=== PATIENT | female | born 2000 | race Caucasian/White ===

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

== ENCOUNTER 2019-04-06 15:29 | Emergency (ER) | payer BC, OTHER ==
--- NOTE | 2019-04-06 15:39 | PDOC ---
Rapid Medical Evaluation Chief Complaint: Pain Time Seen by Provider: 04/06/19 15:36 Medical Evaluation: Allergies Allergy/AdvReac Type Severity Reaction Status Date / Time No Known Allergies Allergy Verified 04/06/19 15:37 04/06/19 15:38 I have performed a brief in-person evaluation of this patient. The patient presents with a chief complaint of:L foot pain this am. No recent trauma. Sustained fx to same foot 2 yrs ago per pt Pertinent physical exam findings: diffuse ttp to dorsum of L foot I have ordered the following:nothing The patient will proceed to the ED for further evaluation. Discharge Disposition - Diagnosis Foot pain Qualifiers: Laterality: left Qualified Code(s): M79.672 - Pain in left foot - Referrals - Patient Instructions - Post Discharge Activity
[2019-04-06 15:40] VITALS: BP 101/58; PULSE 76; TEMP 97.8; BMI 25.0
[2019-04-06] MEDS ORDERED: IBUPROFEN 600 MG TABLET (FP) PO ONE ×2 (16:06→16:09)
--- NOTE | 2019-04-06 16:47 | PDOC ---
History of Present Illness - General Chief Complaint: Pain Stated Complaint: FOOT PAIN Time Seen by Provider: 04/06/19 15:36 History Source: Patient Exam Limitations: No Limitations Past History - Past Medical History Allergies/Adverse Reactions: Allergies Allergy/AdvReac Type Severity Reaction Status Date / Time No Known Allergies Allergy Verified 04/06/19 15:37 Home Medications: Ambulatory Orders Nitrofurantoin Monohyd/M-Cryst [Macrobid -] 100 mg PO BID #14 capsule 07/05/18 Phenazopyridine HCl [Pyridium] 100 mg PO TID PRN #20 tablet 07/05/18 Cane 1 each MC ONCE #1 each 04/06/19 COPD: No Other medical history: MIGRANES - Immunization History Immunization Up to Date: Yes - Suicide/Smoking/Psychosocial Hx Smoking History: Never smoked Have you smoked in the past 12 months: No Number of Cigarettes Smoked Daily: 0 Information on smoking cessation initiated: No Hx Alcohol Use: No Drug/Substance Use Hx: No Substance Use Type: None Trauma Specific PMHX - Complaint Specific PMHX Neck Injury: Yes *Physical Exam - Vital Signs Last Vital Signs Temp Pulse Resp BP Pulse Ox 97.8 F 76 17 101/58 L 98 04/06/19 15:37 04/06/19 15:37 04/06/19 15:37 04/06/19 15:37 04/06/19 15:37 - Physical Exam General Appearance: No: Apparent Distress Vascular Pulses: Doralis-Pedis (L): 2+ Extremity: positive: Normal Capillary Refill, Other (mild swelling along lateral aspect of L foot with TTP along base of L 5th MTP joint, no deformity noted). negative: Pedal Edema, Calf Tenderness Integumentary: positive: Normal Color, Dry. negative: Ecchymosis, Bruising Neurologic: positive: Alert, Normal Mood/Affect ED Treatment Course - Medications Given in the ED: ED Medications Discontinued Medications Generic Name Dose Route Start Last Admin Trade Name Freq PRN Reason Stop Dose Admin Ibuprofen 600 mg 04/06/19 16:06 04/06/19 16:11 Motrin - PO 04/06/19 16:07 600 mg ONCE ONE Administration Medical Decision Making - Medical Decision Making 18 y/o F with hx of migraines presents with L foot pain from today. Mentioned she fractured L foot 2 years ago (was in cast, no surgery done) and woke up today feeling like she fractured it again. Denies trauma. States she worked out yesterday but does not recall falling or twisting her foot. Denies numbness, tingling, calf pain. L foot xray negative with no fracture noted L foot omi-wrapped; patient did not want crutches but prefers a cane Will refer to podiatry for further eval Given copy of CD images 04/06/19 16:42 *DC/Admit/Observation/Transfer Diagnosis at time of Disposition: Foot pain Qualifiers: Laterality: left Qualified Code(s): M79.672 - Pain in left foot - Discharge Dispostion Disposition: HOME Condition at time of disposition: Stable Decision to Admit order: No - Prescriptions Prescriptions: Cane 1 each MC ONCE #1 each - Referrals Referrals: William Bo MD [Staff Physician] - Call tomorrow - Patient Instructions Printed Discharge Instructions: DI for Foot Pain Additional Instructions: Thank you for choosing [facility]. It was a pleasure taking care of you. You may take Motrin 600 mg every 6 hours by mouth as needed for mild to moderate pain. Take Motrin with food. Apply cold compresses to site to help with swelling. May switch to warm compresses after 2 days You were referred to windows migration technician for further evaluation Return to the Emergency Department if your symptoms worsen or persist or have other concerning symptoms. - Post Discharge Activity
== END 2019-04-06 16:52 | disposition home or self-care (01) ==
LOC: JERFT 15:29
DX: M79.672 Pain in left foot (principal)
CPT/HCPCS: 73630-TC-LT; 99282-25

== ENCOUNTER 2019-10-02 14:14 | Emergency (ER) | payer BC, OTHER ==
[2019-10-02 14:20] VITALS: BP 107/69; PULSE 86; TEMP 98.5; BMI 24.1
[2019-10-02 16:14] LABS: EPI CELLS 3.9 /HPF (0-5/HPF); HYALINE CASTS 41 /lpf (0-8); URINE APPEARANCE TURBID; URINE BACTERIA 424.5 /hpf (NEGATIVE); URINE BILIRUBIN NEGATIVE (NEGATIVE); URINE COLOR DK YELLOW; URINE GLUCOSE (UA) NEGATIVE (NEGATIVE); URINE KETONE TRACE (NEGATIVE); URINE LEUK ESTERASE 2+ (NEGATIVE); URINE NITRITE NEGATIVE (NEGATIVE); URINE PROTEIN 4+ (NEGATIVE); URINE RBC 1467 /hpf (0-4); URINE WBC 1564 /hpf (0-5)
--- NOTE | 2019-10-02 16:18 | PDOC ---
History of Present Illness - General Chief Complaint: Urinary Problem Stated Complaint: R/O UTI Time Seen by Provider: 10/02/19 14:18 - History of Present Illness Initial Comments: 10/02/19 16:17 19-year-old female with UTI symptoms x1 day Past History - Past Medical History Allergies/Adverse Reactions: Allergies Allergy/AdvReac Type Severity Reaction Status Date / Time No Known Allergies Allergy Verified 04/06/19 15:37 Home Medications: Ambulatory Orders Cephalexin [Keflex] 500 mg PO QID #20 capsule 10/02/19 COPD: No - Immunization History Immunization Up to Date: Yes - Psycho Social/Smoking Cessation Hx Smoking History: Never smoked Have you smoked in the past 12 months: No Number of Cigarettes Smoked Daily: 0 Information on smoking cessation initiated: No Hx Alcohol Use: No Drug/Substance Use Hx: No Substance Use Type: None Review of Systems - Review of Systems Constitutional: No: Fever : Yes: Dysuria *Physical Exam - Vital Signs Last Vital Signs Temp Pulse Resp BP Pulse Ox 98.5 F 86 18 107/69 100 10/02/19 14:16 10/02/19 14:16 10/02/19 14:16 10/02/19 14:16 10/02/19 14:16 - Physical Exam 10/02/19 16:17 GENERAL: The patient is awake, alert, and fully oriented, in no acute distress. HEAD: Normal with no signs of trauma. EYES: sclera anicteric, conjunctiva clear. PSYCH: Normal mood, normal affect. SKIN: Warm, Dry, normal turgor, no rashes or lesions noted. ED Treatment Course - ADDITIONAL ORDERS Additional order review: Laboratory Results 10/02/19 10/02/19 14:30 14:30 Urine Color Dk yellow Urine Appearance Turbid Urine pH 6.0 Ur Specific [place] 1.022 Urine Protein 4+ H Urine Glucose (UA) Negative Urine Ketones Trace H Urine Blood 3+ H Urine Nitrite Negative Urine Bilirubin Negative Urine Urobilinogen 1.0 Ur Leukocyte Esterase 2+ H Urine WBC (Auto) 1564 Urine RBC (Auto) 1467 Urine Casts (Auto) 41 U Epithel Cells (Auto) 3.9 Urine Bacteria (Auto) 424.5 Urine HCG, Qual Negative Medical Decision Making - Medical Decision Making 10/02/19 16:18 Keflex for UTI follow-up with primary care physician Discharge - Discharge Information Problems reviewed: Yes Clinical Impression/Diagnosis: Dysuria, Urinary tract infection Condition: Stable Disposition: HOME - Admission No - Additional Discharge Information Prescriptions: Cephalexin [Keflex] 500 mg PO QID #20 capsule - Follow up/Referral Referrals: Emiliana Gordillo MD [Staff Physician] - - Patient Discharge Instructions Additional Instructions: Return to the emergency room for worsening symptoms please start the antibiotics and take them as directed and finish the entire course. Without fail follow-up with your primary care physician in 2 to 3 days for further evaluation and treatment options. - Post Discharge Activity
== END 2019-10-02 16:23 | disposition home or self-care (01) ==
LOC: JERFT 14:14
DX: N39.0 Urinary tract infection, site not specified (principal)
CPT/HCPCS: 81003; 84703; 87086; 87186; 99282-25

== ENCOUNTER 2019-10-18 19:39 | Emergency (ER) | payer BC, OTHER ==
[2019-10-18] MEDS ORDERED: FLUORESCEIN NA 1 EA STRIP OD ONE (19:44)
[2019-10-18] MEDS ORDERED: TETRACAINE 0.5% HCL 0.6ML DROPPER.BOTTLE OD ONE (19:45)
[2019-10-18 19:51] VITALS: BP 111/64; PULSE 71; TEMP 97.8; BMI 24.1
[2019-10-18] MEDS ORDERED: IBUPROFEN 400 MG TABLET (FP) PO ONE ×2 (20:11→20:12)
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
== END 2019-10-18 21:05 | disposition home or self-care (01) ==
LOC: FER 19:39
DX: S46.912A Strain of unspecified muscle, fascia and tendon at shoulder and upper arm level, left arm, initial encounter (principal); S80.02XA Contusion of left knee, initial encounter; V43.52XA Car driver injured in collision with other type car in traffic accident, initial encounter; Y93.89 Activity, other specified; Y92.410 Unspecified street and highway as the place of occurrence of the external cause
CPT/HCPCS: 73560-TC-LT-FY; 99281-25

== ENCOUNTER 2023-11-03 00:42 | Emergency (ER) | payer BC, OTHER ==
[2023-11-03 00:53] VITALS: BP 113/68; PULSE 80; RESP 18; TEMP 98.2; BMI 39.4
== END 2023-11-03 01:04 | disposition home or self-care (01) ==
LOC: FER 00:42
DX: R05.9 Cough, unspecified (principal); R53.83 Other fatigue; B34.9 Viral infection, unspecified; Z20.822 Contact with and (suspected) exposure to COVID-19
CPT/HCPCS: 0241U-QW; 99283-25

== ENCOUNTER 2023-12-01 21:15 | Emergency (ER) | payer BC, OTHER ==
[2023-12-01 21:27] VITALS: BP 118/79; PULSE 102; RESP 17; TEMP 98.2; BMI 38.2
[2023-12-01] MEDS ORDERED: ONDANSETRON 4 MG/2 ML VIAL ONE (21:39)
[2023-12-01] MEDS ORDERED: KETOROLAC TROMETHAMINE 30 MG/1 ML VIAL ONE (21:39)
[2023-12-01] MEDS ORDERED: PANTOPRAZOLE SODIUM 40 MG VIAL ONE (21:39)
[2023-12-01] MEDS: KETOROLAC TROMETHAMINE 30 MG/1 ML VIAL IVPUSH ONE (21:49)
[2023-12-01] MEDS: SODIUM CHLORIDE 1,000 ML IV ONE (21:49)
[2023-12-01] MEDS: ONDANSETRON 4 MG/2 ML VIAL IVPUSH ONE (21:49)
[2023-12-01] MEDS: PANTOPRAZOLE SODIUM 40 MG VIAL IVPUSH ONE (21:50)
[2023-12-01 22:04] LABS: HEMATOCRIT 46.3 % (32.4-45.2); HEMOGLOBIN 15.6 G/dL (10.7-15.3); MCH 30.4 pg (25.7-33.7); MCHC 33.7 g/dl (32.0-36.0); MEAN CELL VOLUME 90.2 fl (80-96); MEAN PLT VOLUME 8.5 fl (7.5-11.1); PLATELET COUNT 228.3 10^3/uL (134-434); RBC 5.13 10^6/uL (3.60-5.2); RDW 13.5 % (11.6-15.6); WHITE BLOOD COUNT 9.6 10^3/uL (4.0-10.8)
[2023-12-01 22:19] LABS: ALBUMIN 4.5 g/dl (3.4-5.0); BILIRUBIN,TOTAL 0.8 mg/dl (0.2-1); CALCIUM 9.6 mg/dl (8.5-10.1); CREATININE 0.9 mg/dl (0.6-1.3); POTASSIUM 3.9 mmol/L (3.5-5.1); TOT PROT 7.2 g/dl (6.4-8.2)
== END 2023-12-01 23:13 | disposition home or self-care (01) ==
LOC: FER 21:15
PROC: 3E0303Z Introduction of Anti-inflammatory into Peripheral Vein, Open Approach (ICD-10-PCS; principal; 2023-12-01)
PROC: 3E030GC Introduction of Other Therapeutic Substance into Peripheral Vein, Open Approach (ICD-10-PCS; 2023-12-01)
PROC: 3E030GC Introduction of Other Therapeutic Substance into Peripheral Vein, Open Approach (ICD-10-PCS; 2023-12-01)
PROC: 3E0337Z Introduction of Electrolytic and Water Balance Substance into Peripheral Vein, Percutaneous Approach (ICD-10-PCS; 2023-12-01)
DX: R10.11 Right upper quadrant pain (principal); R10.13 Epigastric pain; R11.10 Vomiting, unspecified; K29.00 Acute gastritis without bleeding
CPT/HCPCS: 36415; 76705-TC; 80053; 81025; 83690; 85027; 99284-25

== ENCOUNTER 2024-03-27 19:27 | Emergency (ER) | payer BC, OTHER ==
[2024-03-27 19:43] VITALS: BP 127/82; PULSE 98; RESP 18; TEMP 98.6; BMI 38.3
[2024-03-27] MEDS ORDERED: CLINDAMYCIN HCL 150 MG CAPSULE (FP) ONE (20:11)
[2024-03-27] MEDS: CLINDAMYCIN HCL 300 MG CAPSULE PO ONE (20:13)
== END 2024-03-27 20:19 | disposition home or self-care (01) ==
LOC: FER 19:27
DX: L02.411 Cutaneous abscess of right axilla (principal); L03.111 Cellulitis of right axilla
CPT/HCPCS: 99283-25

== ENCOUNTER 2024-09-26 15:18 | Emergency (ER) | payer BC, OTHER ==
[2024-09-26] MEDS ORDERED: ONDANSETRON *ODT* 4 MG TABLET ONE (15:29)
[2024-09-26] MEDS: ONDANSETRON *ODT* 4 MG TABLET SL ONE (15:32)
[2024-09-26 16:01] VITALS: BP 110/76; PULSE 104; RESP 18; TEMP 97.3; BMI 28.1
== END 2024-09-26 16:28 | disposition home or self-care (01) ==
LOC: FER 15:18
DX: A08.4 Viral intestinal infection, unspecified (principal); R11.2 Nausea with vomiting, unspecified; R19.7 Diarrhea, unspecified
CPT/HCPCS: 99283-25; Q0162